=== PATIENT | male | born 1975 | race Caucasian/White ===

== ENCOUNTER 2017-11-15 18:55 | Emergency (ER) | payer BC ==
[2017-11-15] MEDS ORDERED: Sodium Chloride 0.9% 1,000 ML IV ONE (19:14)
[2017-11-15] MEDS ORDERED: Ondansetron 4 MG/2 ML SDV IVPUSH ONE (19:27)
--- NOTE | 2017-11-15 19:35 | EDM.PDOC ---
ED HPI GENERAL MEDICAL PROBLEM - General Chief Complaint: Neuro Symptoms/Deficits Stated Complaint: DIZZINESS Time Seen by Provider: 11/15/17 19:16 Source of Information: Reports: Patient History Limitations: Reports: No Limitations - History of Present Illness INITIAL COMMENTS - FREE TEXT/NARRATIVE: HISTORY AND PHYSICAL: History of present illness: Patient is a 41-year-old male who presents to the emergency room today with complaints of dizziness over the past 2 days. Patient states that initially he was having dizziness just with movement of his head. He states this has progressively gotten worse and he now has some dizziness while he is sitting still. He states most of the times he is able to relieve the symptoms with sitting still or lying flat on his back. Over the past several hours this has not relieved the symptoms. He currently does have some nausea associated with this. He denies any fever, chills, chest pain, shortness of breath or cough. He denies any syncope, near syncope or diaphoresis. Denies any abdominal pain, vomiting, diarrhea, constipation or dysuria. No recent head injury, trauma or falls. Review of systems: As per history of present illness and below otherwise all systems reviewed and negative. Past medical history: As per history of present illness and as reviewed below otherwise noncontributory. Surgical history: As per history of present illness and as reviewed below otherwise noncontributory. Social history: No reported history of drug or alcohol abuse. Family history: As per history of present illness and as reviewed below otherwise noncontributory. Physical exam: General: Well-developed and well-nourished 41-year-old male. Alert and oriented. Nontoxic appearing and in no acute distress. HEENT: Atraumatic, normocephalic, pupils equal and reactive bilaterally, negative for conjunctival pallor or scleral icterus, mucous membranes moist, throat clear, left TM normal, right TM does have fluid behind the TM, dull light reflex, no erythema or bulging. His neck is supple, nontender, trachea midline. No drooling or trismus noted. No meningeal signs Lungs: Clear to auscultation, breath sounds equal bilaterally, chest nontender. Heart: S1S2, regular rate and rhythm without overt murmur Abdomen: Soft, nondistended, nontender. Negative for masses or hepatosplenomegaly. Negative for costovertebral tenderness. Pelvis: Stable nontender. Genitourinary: Deferred. Rectal: Deferred. Skin: Intact, warm, dry. No lesions or rashes noted. Extremities: Atraumatic, negative for cords or calf pain. Neurovascular unremarkable. Neuro: Awake, alert, oriented. Cranial nerves II through XII unremarkable. Cerebellum unremarkable. Motor and sensory unremarkable throughout. Exam nonfocal. Notes: Lab work is unremarkable. EKG is normal sinus rhythm. Orthostatic vital signs show no drop in blood pressure. Head CT shows no acute intracranial disease. Patient states he does feel improved after the IV fluids and Zofran. We discussed possible causes of his dizziness. This may be any eustachian tube dysfunction. We discussed physical therapy techniques and/or ear nose and throat follow-up which could be an option for treatment in the future. At this time he would like to be discharged to home. We did discuss meclizine OTC vs prescription medication; he states he will use [id number] products. He discussed his high blood pressure reading while here in the emergency room. Since this is a one time in since they do not feel comfortable placing him on antihypertensive medication. I did encourage them to continue to monitor this as he may possibly need antihypertensive in the future. The is at the bedside and states she will continue to monitor him at home. Encouraged him to follow up with the research test engine operator or the primary care provider on Friday. Eyes any further questions or concerns at this time. Diagnostics: CBC, CMP, EKG, troponin, chest x-ray, head CT, orthostatic vital signs Therapeutics: IV Fluid, Zofran Prescription: None Impression: Dizziness Plan: 1. Increase your oral fluids. You may use [id number] meclizine for your dizziness. Please take as directed. 2. Flonase nasal spray to help with eustation tube/fluid behind the right tympanic membrane. Take as directed over the next several days. 3. He continued to have dizziness I prefer you to not drive or operate any heavy machinery. 4. Follow-up with your primary care provider or the ENT specialist on Friday. Return to the ED as needed and as discussed. Definitive disposition and diagnosis as appropriate pending reevaluation and review of above. - Related Data Allergies Allergy/AdvReac Type Severity Reaction Status Date / Time No Known Allergies Allergy Verified 11/15/17 19:23 Home Meds: Home Meds Venlafaxine [Effexor XR] 1 cap PO DAILY 11/15/17 [History] Social & Family History - Tobacco Use Smoking Status *Q: Current Every Day Smoker Years of Tobacco use: 25 Packs/Tins Daily: 1 - Recreational Drug Use Recreational Drug Use: No ED ROS GENERAL - Review of Systems Review Of Systems: ROS reveals no pertinent complaints other than HPI. ED EXAM, NEURO - Physical Exam Exam: See Below (See dictation) Course - Vital Signs Last Recorded V/S: Last Vital Signs Temp 97.6 F 11/15/17 19:10 Pulse 77 11/15/17 19:10 Resp 18 11/15/17 19:10 BP 138/85 11/15/17 19:10 Pulse Ox 99 11/15/17 19:10 Orthostatic Blood Pressure [ 174/100 Standing] Orthostatic Blood Pressure [ 141/91 Sitting] Orthostatic Blood Pressure [ 137/88 Supine] - Orders/Labs/Meds Orders: Active Orders 24 hr Category Date Time Status EKG Documentation Completion [RC] STAT Care 11/15/17 19:14 Active Orthostatic Vital Signs [RC] ASDIRECTED Care 11/15/17 19:14 Active Chest 1V Frontal [CR] Stat Exams 11/15/17 19:14 Taken Head wo Cont [CT] Stat Exams 11/15/17 19:14 Taken Labs: Laboratory Tests 11/15/17 11/15/17 Range/Units 19:27 19:27 WBC 8.21 (4.0-11.0) K/uL RBC 4.30 L (4.50-5.90) M/uL Hgb 14.1 (13.0-17.0) g/dL Hct 39.8 (38.0-50.0) % MCV 92.6 (80.0-98.0) fL MCH 32.8 H (27.0-32.0) pg MCHC 35.4 (31.0-37.0) g/dL RDW Std Deviation 43.7 (28.0-62.0) fl RDW Coeff of Mylene 13 (11.0-15.0) % Plt Count 202 (150-400) K/uL MPV 9.40 (7.40-12.00) fL Neut % (Auto) 60.9 (48.0-80.0) % Lymph % (Auto) 29.6 (16.0-40.0) % Maverick % (Auto) 6.7 (0.0-15.0) % Eos % (Auto) 2.3 (0.0-7.0) % Baso % (Auto) 0.5 (0.0-1.5) % Neut # (Auto) 5.0 (1.4-5.7) K/uL Lymph # (Auto) 2.4 (0.6-2.4) K/uL Maverick # (Auto) 0.6 (0.0-0.8) K/uL Eos # (Auto) 0.2 (0.0-0.7) K/uL Baso # (Auto) 0.0 (0.0-0.1) K/uL Nucleated RBC % 0.0 /100WBC Nucleated RBCs # 0 K/uL Sodium 138 (136-148) mmol/L Potassium 3.8 (3.5-5.1) mmol/L Chloride 102 (98-107) mmol/L Carbon Dioxide 31.5 (21.0-32.0) mmol/L BUN 9 (7.0-18.0) mg/dL Creatinine 1.2 (0.8-1.3) mg/dL Est Cr Clr Drug Dosing 76.50 mL/min Estimated GFR (MDRD) > 60.0 ml/min Glucose 98 (74-106) mg/dL Calcium 9.6 (8.5-10.1) mg/dL Total Bilirubin 0.6 (0.2-1.0) mg/dL AST 16 (15-37) IU/L ALT 33 (14-63) IU/L Alkaline Phosphatase 53 (46-116) U/L Troponin I < 0.050 (0.000-0.056) ng/mL Total Protein 7.3 (6.4-8.2) g/dL Albumin 4.3 (3.4-5.0) g/dL Globulin 3.0 (2.0-3.5) g/dL Albumin/Globulin Ratio 1.4 (1.3-2.8) Meds: Medications Discontinued Medications Generic Name Dose Route Start Last Admin Trade Name Freq PRN Reason Stop Dose Admin Sodium Chloride 1,000 mls @ 999 mls/hr 11/15/17 19:14 11/15/17 19:42 Normal Saline IV 11/15/17 20:14 999 mls/hr STAT ONE Administration Ondansetron HCl 4 mg 11/15/17 19:27 11/15/17 19:42 Zofran IVPUSH 11/15/17 19:28 4 mg ONETIME ONE Administration Departure - Departure Time of Disposition: 20:54 Disposition: Home, Self-Care 01 Clinical Impression: Dizziness - Discharge Information Instructions: Dizziness, [id number] Referrals: PCP,Not In Area [Primary Care Provider] - Forms: ED Department Discharge Additional Instructions: The following information is given to patients seen in the emergency department who are being discharged to home. This information is to outline your options for follow-up care. We provide all patients seen in our emergency department with a follow-up referral. The need for follow-up, as well as the timing and circumstances, are variable depending upon the specifics of your emergency department visit. If you don't have a primary care physician on staff, we will provide you with a referral. We always advise you to contact your personal physician following an emergency department visit to inform them of the circumstance of the visit and for follow-up with them and/or the need for any referrals to a consulting specialist. The emergency department will also refer you to a specialist when appropriate. This referral assures that you have the opportunity for follow-up care with a specialist. All of these measure are taken in an effort to provide you with optimal care, which includes your follow-up. Under all circumstances we always encourage you to contact your private physician who remains a resource for coordinating your care. When calling for follow-up care, please make the office aware that this follow-up is from your recent emergency room visit. If for any reason you are refused follow-up, please contact the [facility] Emergency Department at and asked to speak to the emergency department charge nurse. [facility] Primary [facility] [address] [place] [id number] [facility] Specialty [facility] - ENT [address] [place] [id number] 1. Increase your oral fluids. You may use [id number] meclizine for your dizziness. Please take as directed. 2. Flonase nasal spray to help with eustation tube/fluid behind the right tympanic membrane. Take as directed over the next several days. 3. He continued to have dizziness I prefer you to not drive or operate any heavy machinery. 4. Follow-up with your primary care provider or the ENT specialist on Friday. Return to the ED as needed and as discussed. - My Orders Last 24 Hours: My Active Orders 11/15/17 19:14 EKG Documentation Completion [RC] STAT Orthostatic Vital Signs [RC] ASDIRECTED Chest 1V Frontal [CR] Stat Head wo Cont [CT] Stat - Assessment/Plan Last 24 Hours: My Active Orders 11/15/17 19:14 EKG Documentation Completion [RC] STAT Orthostatic Vital Signs [RC] ASDIRECTED Chest 1V Frontal [CR] Stat Head wo Cont [CT] Stat
[2017-11-15 20:10] LABS: CHLORIDE,CL 102 mmol/L (98-107); SODIUM,NA 138 mmol/L (136-148)
--- NOTE | 2017-11-18 09:15 | CR ---
EXAM DATE: 11/15/17 PATIENT'S AGE: 41 Patient: NICK AIKEN Facility: [place], [place] Site . Site : 1975 Study: XRay Chest [id number] 8:00:46 PM Ordering Physician: Doctor Lara Final Report: INDICATION: Dizziness. TECHNIQUE: AP portable chest x-ray. FINDINGS: Heart size normal. Mild soft tissue prominence in the right mediastinum from level of the hilum to the aortic arch could be vascular in nature and related to ectasia or mild dilatation of the ascending aorta but is not specific. Small calcified granuloma right lower lung. Lungs otherwise clear without infiltrate or consolidation. Chest otherwise negative. Dictated by Timothy Sevilla MD @ Nov 15 2017 8:11PM (Electronic Signature) Report Signed by Proxy. BRITTANY
--- NOTE | 2017-11-18 09:16 | CT ---
EXAM DATE: 11/15/17 PATIENT'S AGE: 41 Patient: NICK AIKEN Facility: [place], [place] Site . Site : 1975 Study: CT Head wo cont [id number]/[id number] 8:32:33 PM Ordering Physician: Doctor Lara Final Report: INDICATION: Dizziness. Two days of dizziness with nausea. TECHNIQUE: CT head without IV contrast. FINDINGS: No acute intracranial hemorrhage, edema, or mass-effect. Mild prominent calcification in the region of the pineal gland measures nearly 1 cm. Remainder negative. IMPRESSION: No acute intracranial disease. Please note that all CT scans at this facility use dose modulation, iterative reconstruction, and/or weight-based dosing when appropriate to reduce radiation dose to as low as reasonably achievable. Dictated by Timothy Sevilla MD @ Nov 15 2017 8:39PM (Electronic Signature) Report Signed by Proxy. BRITTANY
== END 2017-11-15 21:10 | disposition home or self-care (01) ==
LOC: MW.ED 18:55
DX: R42 Dizziness and giddiness (principal); F17.210 Nicotine dependence, cigarettes, uncomplicated
CPT/HCPCS: 36415; 70450; 71045; 80053; 84484; 85025; 93005; 96361; 96374; 99285; J2405; J7040